=== PATIENT | female | born 1980 | race Caucasian/White ===

== ENCOUNTER 2018-04-21 07:14 | Emergency (ER) | payer OTHER ==
[~2018-04-21] VITALS: Ht 167.6 cm; Wt 146.9 kg
[~2018-04-21 07:14] MED LIST: ACCUNEB1.25 MG/3 IH; ASMANEX TW200 MICRO1 IH; LEVOTHROID125 MCG PO; LEVOTHYROXINE150 MCG PO; LISINOPRIL-HCT1 EACH; LISINOPRIL/HCTZ; METFORMIN HCL500 MG PO; OMEPRAZOLE40 M1 PO; PROAIR HFA8.5 GM IH; PROZAC40 MG PO; SINGULAIR10 MG PO
[2018-04-21 11:50] VITALS: BP 142/67
== END 2018-04-21 13:16 | disposition home or self-care (01) ==
LOC: EME 07:14
DX: J45.901 Unspecified asthma with (acute) exacerbation (principal); E11.9 Type 2 diabetes mellitus without complications; Z79.84 Long term (current) use of oral hypoglycemic drugs; Z88.2 Allergy status to sulfonamides
CPT/HCPCS: 71046; 94640; 94644; 99281; 99284; J1100